=== PATIENT | male | born 1990 | race American Indian/Alaskan Native ===

== ENCOUNTER 2017-02-05 23:13 | Emergency (ER) | payer SELFPAY ==
[2017-02-05 23:30] VITALS: BP 130/80; PULSE 80; RESP 14; TEMP 97.9; O2SAT 99
--- NOTE | 2017-02-06 00:15 | C.PDOC ---
History Of Present Illness 26 year old male who presents to the ER after he stepped on a broken bottle last night at approximately 03:00. Patient states the wound continued to bleed which prompted ER visit. Patient is not up to date with tetanus; denies weakness or numbness. (Shruthi Ross) History Per: Patient History/Exam Limitations: no limitations Onset/Duration Of Symptoms: Hrs Current Symptoms Are (Timing): Still Present Location Of Injury: Left: Foot Quality Of Symptoms: Other (Laceration) Recent travel outside of the [place]: No Time Seen by Provider: 02/05/17 23:33 Chief Complaint (Nursing): Abnormal Skin Integrity Past Medical History Reviewed: Historical Data, Nursing Documentation, Vital Signs - Medical History PMH: No Chronic Diseases Surgical History: No Surg Hx Family History: States: Unknown Family Hx - Social History Hx Alcohol Use: No Hx Substance Use: No - Immunization History Hx Tetanus Toxoid Vaccination: No Hx Influenza Vaccination: No Hx Pneumococcal Vaccination: No Vital Signs: Last Vital Signs Temp 97.9 F 02/05/17 23:28 Pulse 80 02/05/17 23:28 Resp 14 02/05/17 23:28 BP 130/80 02/05/17 23:28 Pulse Ox 99 02/06/17 03:56 Review Of Systems Musculoskeletal: Positive for: Foot Pain Skin: Positive for: Other (Laceration) Neurological: Negative for: Weakness, Numbness Physical Exam - Physical Exam Appears: Non-toxic, No Acute Distress Skin: Warm, Dry Head: Atraumatic, Normacephalic Eye(s): bilateral: Normal Inspection Extremity: Normal ROM (x4), Capillary Refill (<2 seconds), No Deformity, Other ( 2.5 laceration to plantar aspect of left mid foot w/ no bleeding, no visualized or palpable foreign body) Extremity: Bilateral: Normal Color And Temperature Pulses: Left Dorsalis Pedis: Normal, Right Dorsalis Pedis: Normal Neurological/Psych: Oriented x3, Normal Speech, Normal Cognition, Normal Motor, Normal Sensation Gait: Steady ED Course And Treatment O2 Sat by Pulse Oximetry: 99 (Room air) Pulse Ox Interpretation: Normal Progress Note: Foot soaked in saline and betadine, irrigated vigorously, As wound is > 20hrs old, laceration is not sutured. 2 steristrips applied for approximation and bacitracin dressing applied. Tetanus vaccination administered. Patient is stable in the ER, will discharge home with instructions to follow up with PMD for wound check. Laceration - Laceration Repair Left foot, plantar aspect Wound Length (In cm): 2.5 Description Of Wound: Linear Wound Cleansed With: Betadine, Sterile Saline Wound Examination: Irrigated With Saline (Vigorously), No FB With Wound Exploration, No Tendon Injury With Wound Exploration Wound Closure: Steri Strips (x2) Wound Complexity: Simple (pt tolerated well) Disposition Counseled Patient/Family Regarding: Diagnosis, Need For Followup, Rx Given - Disposition Disposition Time: 00:11 - Disposition Disposition: HOME/ ROUTINE Condition: STABLE Additional Instructions: Keep wound clean Apply bacitracin to area Please follow up with PMD or in clinic in 2 days Prescriptions: Amoxicillin/Clavulanate [Augmentin 875 MG-125 MG] 1 tab PO BID #14 tab Bacitracin Ointment [Bacitracin] 30 gm TOP BID #1 tube Instructions: Laceration (ED), Skin Adhesive Care (ED) Forms: [employer] (Irish) - Clinical Impression Clinical Impression: Laceration of foot - Scribe Statement The provider has reviewed the documentation as recorded by the Scribe - Scribe Statement Vickey Adrian All medical record entries made by the Scribe were at my direction and personally dictated by me. I have reviewed the chart and agree that the record accurately reflects my personal performance of the history, physical exam, medical decision making, and the department course for this patient. I have also personally directed, reviewed, and agree with the discharge instructions and disposition. (Shruthi Ross)
== END 2017-02-06 00:25 | disposition home or self-care (01) ==
LOC: C.ER 23:13
DX: S91.312A Laceration without foreign body, left foot, initial encounter (principal); W22.8XXA Striking against or struck by other objects, initial encounter